=== PATIENT | male | born 1980 | race Caucasian/White ===

== ENCOUNTER 2020-05-01 17:24 | Emergency (ER) | payer BC, OTHER ==
[~2020-05-01] VITALS: Ht 177.8 cm; Wt 90.7 kg
[2020-05-01 19:12] LABS: Basophils # (auto) 0.1 10 ^3/uL (0-0.2); Basophils % (auto) 1.1 % (0.0-2.0); Eosinophils # (auto) 0.4 10 ^3/uL (0-0.8); Eosinophils % (auto) 4.5 % (0.0-7.0); Hematocrit 42.6 % (41.0-53.0); Hemoglobin 15.2 g/dL (13.5-17.5); Lymphocytes # (auto) 1.6 10 ^3/uL (0.4-5.4); Lymphocytes % (auto) 18.7 % (10.0-50.0); Mean Corpuscular Hemoglobin 29.3 pg (28.0-32.0); Mean Corpuscular Hgb Conc. 35.7 g/dL (32.0-36.0); Mean Corpuscular Volume 82.1 fL (80.0-100.0); Monocytes # (auto) 0.5 10 ^3/uL (0-1.3); Monocytes % (auto) 5.9 % (0.0-12.0); Neutrophils # (auto) 6.2 10 ^3/uL (1.6-8.6); Neutrophils % (auto) 69.8 % (37.0-80.0); Nucleated Red Blood Cells % 0.1 %; Platelet Count (auto) 300 10^3/uL (140-450); Red Blood Cells 5.19 10^6/uL (4.5-5.90); Red Cell Distribution Width 12.1 % (11.8-14.3); White Blood Cell 8.8 10^3/uL (4.4-10.8)
[2020-05-01 19:24] LABS: Albumin 3.5 g/dL (3.4-5.0); Anion Gap 3 (5-15); Blood Urea Nitrogen 12 mg/dL (7-18); Calcium 9.4 mg/dL (8.5-10.1); Carbon Dioxide 25 mmol/L (21-32); Chloride 108 mmol/L (98-107); Glucose 95 mg/dL (74-106); Magnesium 2.2 mg/dL (1.6-2.6); Potassium 4.4 mmol/L (3.5-5.1); Sodium 136 mmol/L (136-145)
[2020-05-01 19:30] LABS: INR 1.04 (0.9-1.15); Partial Thromboplastin Time 28.2 sec (23.0-31.2)
[2020-05-01 19:31] LABS: Alanine Aminotransferase 47 U/L (16-61); Alkaline Phosphatase 117 U/L (45-117); Aspartate Aminotransferase 22 U/L (15-37); BUN/Creatinine Ratio 18.8; Bilirubin, Total 0.3 mg/dL (0.2-1.0); GFR African American 179 mL/min; GFR Non-African American 148 mL/min; Total Protein 7.2 g/dL (6.4-8.2)
[2020-05-01] MEDS ORDERED: SODIUM CHLORIDE 0.9% 1,000 ML IV ONE (19:45)
[2020-05-01 20:30] VITALS: BP 137/95
== END 2020-05-01 20:37 | disposition home or self-care (01) ==
LOC: ER 17:24 → EDBD 17:24 → ER 20:35
DX: F41.9 Anxiety disorder, unspecified (principal); R94.6 Abnormal results of thyroid function studies; F17.210 Nicotine dependence, cigarettes, uncomplicated
CPT/HCPCS: 36415; 71046; 80053; 83735; 83880; 84443; 84484; 85025; 85610; 85730; 93005; 96360; 99285; J7030